=== PATIENT | female | born 1960 | race Caucasian/White ===

== ENCOUNTER → 2017-12-06 | Outpatient (CLI) | payer MEDICAID ==
[~2017-12-06] MED LIST: CARI250T PO; ESTR0.5T PO; HYDR-3241 PO
== END | disposition home or self-care (01) ==
LOC: CFH 15:37
PROVIDERS: ATTEND Family Medicine
DX: M94.262 Chondromalacia, left knee (principal); M25.462 Effusion, left knee; M48.07 Spinal stenosis, lumbosacral region; M47.897 Other spondylosis, lumbosacral region; M51.26 Other intervertebral disc displacement, lumbar region
CPT/HCPCS: 72148

== ENCOUNTER → 2018-02-12 | Outpatient (CLI) | payer MEDICAID | END | disposition home or self-care (01) | LOC: CFH 16:30 | PROVIDERS: ATTEND Nurse Practitioner | DX: M51.34 Other intervertebral disc degeneration, thoracic region (principal) | CPT/HCPCS: 72072 ==

== ENCOUNTER → 2018-10-10 | Outpatient (CLI) | payer MEDICAID | END | disposition home or self-care (01) | LOC: CFH 08:28 | PROVIDERS: ATTEND Family Medicine | DX: J34.2 Deviated nasal septum (principal); H70.91 Unspecified mastoiditis, right ear; H92.03 Otalgia, bilateral | CPT/HCPCS: 70486 ==

== ENCOUNTER → 2020-03-09 | Outpatient (CLI) | payer OTHER | END | disposition home or self-care (01) | LOC: CFH 10:23 | PROVIDERS: ATTEND Family Medicine | DX: Z12.31 Encounter for screening mammogram for malignant neoplasm of breast (principal) | CPT/HCPCS: 77063; 77067 ==

== ENCOUNTER 2020-05-29 12:56 | Outpatient (CLI) | payer OTHER ==
[~2020-05-29 12:56] MED LIST changes: +LIDOCAINE 1%, 10ML ONE
== END 2020-05-29 23:59 | disposition home or self-care (01) ==
LOC: RAD 12:56
PROVIDERS: ATTEND Family Medicine
DX: R59.0 Localized enlarged lymph nodes (principal)
CPT/HCPCS: 10005; 88112; 88305; J3490